=== PATIENT | female | born 1940 | race Caucasian/White ===

== ENCOUNTER → 2017-05-03 | Outpatient (CLI) | payer MEDICARE, BC ==
[~2017-05-03] MED LIST: ACETAMINOPHEN PO; ACID REDUCER75 M1 PO; ACTOS PO; ASPIRIN EC81 M1 PO; ASPIRIN PO; ASPIRIN81 M1 PO; ATENOLOL PO; ATENOLOL25 MG PO; BACTRIM DS TABL1 TA1 PO; BACTRIM DS TABL1 TA2 PO; BAYER CHEWABLE81 MG PO; CELEXA PO; CIPRO PO; CLINDAMYCIN HC300 MG PO; DARVOCET-N 1001 TAB PO; DETROL LA PO; DETROL PO; EC-NAPROSYN500 MG PO; GLUCOTROL PO; HEARTBURN150 MG PO; HYDROCODON-ACE1 EAC4 PO; INSULIN 70/30; KEFLEX500 M1 PO; LEVOTHROID75 MCG PO; LEVOTHYROXINE75 MCG PO; LEVOXYL75 MC1 PO; LEXAPRO PO; LORTAB 5/500 TA1 TA1 PO; LOW DOSE ASPIRI81 M1 PO; NEURONTIN300 MG PO; NORCO 5/325 TAB1 TAB PO; PERCOCET 5-3251 TAB PO; PLAVIX PO; PREDNISONE PO; PREDNISONE10 MG/DOSE PO; PRENATAL VITAMI1 TA3 PO; PRENATAL VITAMI1 TA4 PO; PRENATAL1 TA1; PRENATAL1 TA1 PO; PROTONIX PO; PYRIDIUM PO; RANITIDINE HCL150 M1 PO; SIMVASTATIN40 MG PO; SKELAXIN PO; ST. JOSEPH ASPI81 M2 PO; SYNTHROID PO; TENORMIN25 MG; TENORMIN25 MG PO; TRAMADOL HCL50 M1 PO; TRAMADOL HCL50 M2 PO; TYLENOL #3 PO; ULTRAM PO; ZANTAC PO; ZANTAC150 M1; ZANTAC150 M1 PO; ZESTRIL5 MG PO; ZOCOR PO; ZOCOR80 MG PO; ZOFRAN ODT4 MG PO
[2017-05-03 14:07] LABS: BASOPHIL% 0.6 % (0-2.5); EOSINOPHIL# 0.1 X10e3 (0-0.7); EOSINOPHIL% 0.7 % (0.0-7.0); HEMATOCRIT 41.8 % (35.0-45.0); HEMOGLOBIN 13.6 gm/dL (12.0-16.0); LYMPHOCYTE# 2.1 X10e3 (1.0-3.5); LYMPHOCYTE% 28.2 % (17.0-45.0); MEAN CORPUSCULAR HEMOGLOBIN 30.6 PG (28-34); MEAN CORPUSCULAR HGB CONC 32.5 g/dL (30-36); MEAN PLATELET VOLUME 8.8 FL (6.5-11.5); MONOCYTE# 0.5 X10e3 (0-1.0); NEUTROPHIL# 4.9 X10e3 (1.5-7.1); NEUTROPHIL% 64.5 % (40-75); PLATELET COUNT 200 X10e3 (140-420); RED BLOOD COUNT 4.45 X10e (3.90-5.30); RED CELL DISTRIBUTION WIDTH 14.4 % (11.0-15.5); WHITE BLOOD COUNT 7.6 X10e3 (4.0-10.5)
[2017-05-03 14:09] LABS: DIFF IND NO
[2017-05-03 14:30] LABS: URINE APPEARANCE TURBID; URINE BILIRUBIN NEG (NEG); URINE BLOOD TRACE (NEG); URINE COLOR YELLOW; URINE GLUCOSE NEG (NEG); URINE KETONE NEG (NEG); URINE LEUKOCYTE ESTERASE 3+ (NEG); URINE NITRATE NEG (NEG); URINE PROTEIN NEG (NEG); URINE SPECIFIC GRAVITY 1.022 (1.003-1.035); URINE UROBILINOGEN 0.2 MG/DL (NEG)
[2017-05-03 14:33] LABS: URINE BACTERIA AUWI 2+ (NEGATIVE); URINE SQUAMOUS EPITHELIAL CELL MANY /[HPF]; UWBCS1 AUWI 100-200 (0-5)
[2017-05-03 14:35] LABS: ALBUMIN SERUM 3.9 g/dL (3.5-5.0); BILIRUBIN,TOTAL 0.4 mg/dL (0.2-2.0); BUN/CREATININE RATIO 21.25; CALCIUM SERUM 9.1 mg/dL (8.4-10.2); CREATININE SERUM 1.6 mg/dL (0.6-1.4); POTASSIUM 4.7 mmol/L (3.5-5.1); PROTEIN TOTAL SERUM 6.4 g/dL (6.0-8.3)
[2017-05-03 14:46] LABS: CREATININE,RANDOM URINE 214 mg/dL; TOTAL PROTEIN,RANDOM URINE 13 mg/dl (<10)
== END | disposition home or self-care (01) ==
LOC: CLAB 13:25
PROVIDERS: Internal Medicine Nephrology
DX: E87.5 Hyperkalemia (principal)
CPT/HCPCS: 36415; 80053; 81003; 82570; 84156; 85025